=== PATIENT | female | born 1985 | race Two or more races ===

== ENCOUNTER 2017-04-29 20:16 | Emergency (ER) | payer MEDICAID ==
[~2017-04-29] VITALS: Ht 165.1 cm; Wt 78.0 kg
[2017-04-29 21:30] LABS: Urine Bilirubin Negative (Negative); Urine Blood Negative /uL (Negative); Urine Color Yellow (Yellow); Urine Glucose Normal (Normal); Urine Ketone Negative (Negative); Urine Mucus FEW (None Seen); Urine Nitrite Negative (Negative); Urine RBC 1 /hpf (0 - 4); Urine Squamous Epithelial Cell FEW /hpf (<5); Urine Urobilinogen Normal (Negative); Urine pH 7.5 (5.0-8.0)
[2017-04-29 23:16] VITALS: BP 102/65
== END 2017-04-29 23:35 | disposition home or self-care (01) ==
LOC: ER 20:21
DX: O26.891 Other specified pregnancy related conditions, first trimester (principal); O23.41 Unspecified infection of urinary tract in pregnancy, first trimester; J02.9 Acute pharyngitis, unspecified; R11.2 Nausea with vomiting, unspecified; R19.7 Diarrhea, unspecified; Z3A.11 11 weeks gestation of pregnancy
CPT/HCPCS: 81001; 81025

== ENCOUNTER 2022-08-09 08:56 | Emergency (ER) | payer MEDICAID ==
[~2022-08-09] VITALS: Ht 162.6 cm; Wt 82.8 kg
[2022-08-09 09:26] VITALS: BP 140/77
[2022-08-09] MEDS ORDERED: ACETAMINOPHEN 500 MG TAB PO ONE (10:15)
[2022-08-09] MEDS ORDERED: HYDR-4902 PO (10:27)
== END 2022-08-09 10:40 | disposition home or self-care (01) ==
LOC: ER 08:56
DX: S01.01XA Laceration without foreign body of scalp, initial encounter (principal); W18.39XA Other fall on same level, initial encounter; Y93.89 Activity, other specified; Y92.89 Other specified places as the place of occurrence of the external cause; Y99.8 Other external cause status
CPT/HCPCS: 12002

== ENCOUNTER 2022-12-09 22:57 | Observation (INO) | payer MEDICAID ==
[~2022-12-09 22:57] MED LIST: HYDR-4902 PO
== END 2022-12-10 00:22 | disposition home or self-care (01) ==
LOC: LDRP 22:57
PROVIDERS: ADMIT Obstetrics & Gynecology; ATTEND Obstetrics & Gynecology
DX: O98.512 Other viral diseases complicating pregnancy, second trimester (principal); U07.1 COVID-19; O62.9 Abnormality of forces of labor, unspecified; O99.891 Other specified diseases and conditions complicating pregnancy; M54.50 Low back pain, unspecified; O26.892 Other specified pregnancy related conditions, second trimester; R51.9 Headache, unspecified; J02.9 Acute pharyngitis, unspecified; Z3A.21 21 weeks gestation of pregnancy
CPT/HCPCS: 36415; 59025; 87426; 94760; G0378

== ENCOUNTER 2024-04-03 16:33 | Emergency (ER) | payer MEDICAID ==
[~2024-04-03] VITALS: Ht 167.6 cm; Wt 77.0 kg
[2024-04-03 17:29] LABS: Basophils # (auto) 0 10 ^3/uL (0-0.2); Basophils % (auto) 0.3 % (0.0-2.0); Eosinophils # (auto) 0 10 ^3/uL (0-0.8); Eosinophils % (auto) 0.2 % (0.0-7.0); Hematocrit 37.9 % (36.0-46.0); Hemoglobin 12.6 g/dL (12.2-16.2); Lymphocytes # (auto) 1.5 10 ^3/uL (0.4-5.4); Lymphocytes % (auto) 9.6 % (10.0-50.0); Mean Corpuscular Hgb Conc. 33.3 g/dL (32.0-36.0); Mean Corpuscular Volume 87.1 fL (80.0-100.0); Monocytes # (auto) 0.6 10 ^3/uL (0-1.3); Monocytes % (auto) 3.6 % (0.0-12.0); Neutrophils # (auto) 13.5 10 ^3/uL (1.6-8.6); Neutrophils % (auto) 86.3 % (37.0-80.0); Nucleated Red Blood Cells % 0.1 %; Red Blood Cells 4.35 10^6/uL (4.0-5.20); Red Cell Distribution Width 13.7 % (11.8-14.3); White Blood Cell 15.6 10^3/uL (4.4-10.8)
[2024-04-03 17:49] LABS: INR 1.05 (0.9-1.15); Partial Thromboplastin Time 26.2 SEC (24.5-34.5); Prothrombin Time 11.1 sec (9.3-11.8)
[2024-04-03 17:52] LABS: Alanine Aminotransferase 45 U/L (7-40); Albumin 4.4 g/dL (3.2-4.8); Alkaline Phosphatase 86 U/L (46-116); Anion Gap 9 (5-15); Aspartate Aminotransferase 72 U/L (13-40); Bilirubin, Total 0.5 mg/dL (0.2-1.0); Blood Urea Nitrogen 14 mg/dL (9-23); Calcium 9.4 mg/dL (8.7-10.4); Carbon Dioxide 23 mmol/L (20-30); Chloride 106 mmol/L (98-107); Glucose 112 mg/dL (74-106); Potassium 3.4 mmol/L (3.5-5.1); Sodium 138 mmol/L (136-145); Total Protein 7.2 g/dL (5.7-8.2)
[2024-04-03] MEDS ORDERED: IBUP-1455 PO (23:30)
[2024-04-04] VITALS: BP 116/67; PULSE 67; RESP 18; TEMP 98.1; O2SAT 97
[2024-04-04] MEDS: HYDROcodone-ACET 10/325MG TAB PO ONE (00:04)
== END 2024-04-04 00:08 | disposition home or self-care (01) ==
LOC: ER 16:33 → EDUNIT# 16:33 → EDBD 16:33 → ER 04-04 00:08
DX: K76.0 Fatty (change of) liver, not elsewhere classified (principal); K80.20 Calculus of gallbladder without cholecystitis without obstruction; Z79.899 Other long term (current) drug therapy
CPT/HCPCS: 36415; 71045; 76705; 80053; 83690; 83735; 83880; 84484; 85025; 85610; 85730; 93005